=== PATIENT | male | born 2000 | race African-American/Black ===

== ENCOUNTER 2022-04-14 21:14 | Emergency (ER) | payer BC ==
[2022-04-14 22:08] VITALS: BP 137/81; PULSE 89; RESP 18; TEMP 98.3; BMI 40.0
[2022-04-14] MEDS ORDERED: ACETAMINOPHEN 500 MG TABLET (FP) PO ONE (23:40)
[2022-04-14] MEDS ORDERED: SODIUM CHLORIDE 0.9% 500 ML INFUS.BAG IV ONE (23:42)
[2022-04-15] MEDS ORDERED: ACETAMINOPHEN 325 MG TABLET (FP) ONE (00:31)
[2022-04-15 00:33] LABS: BASO % 1.1 % (0-2.0); EOS % 1.5 % (0-4.5); HEMATOCRIT 44.6 % (35.4-49); HEMOGLOBIN 14.8 GM/dL (11.7-16.9); LYMPH % 40.5 % (8-40); MCHC 33.1 g/dl (32.0-35.9); MEAN CELL VOLUME 81.6 fl (80-96); MEAN PLT VOLUME 8.1 fl (7.5-11.1); MONO % 10.2 % (3.8-10.2); NEUT % 46.7 % (42.8-82.8); PLATELET COUNT 280 10^3/uL (134-434); RBC 5.47 M/mm3 (4.00-5.60); RDW 14.2 % (11.9-15.9); WHITE BLOOD COUNT 6.1 K/mm3 (4.0-10.0)
[2022-04-15 00:36] LABS: VENOUS BASE EXCESS -0.3 mmol/L (-2-2); VENOUS O2 SATURATION 90.8 % (70-80); VENOUS PCO2 43.7 mmHg (38-52); VENOUS PH 7.377 (7.310-7.410)
[2022-04-15 00:54] LABS: CALCIUM 9.9 mg/dL (8.5-10.1)
[2022-04-15 00:55] LABS: BLOOD UREA NITROGEN 11.2 mg/dL (7-18); MAGNESIUM 2.1 mg/dL (1.8-2.4)
[2022-04-15 00:58] LABS: CREATININE 0.9 mg/dL (0.55-1.3); PHOSPHOROUS 4.3 mg/dL (2.5-4.9)
[2022-04-15 00:59] LABS: BILIRUBIN,TOTAL 0.6 mg/dL (0.2-1); TOT PROT 7.5 g/dl (6.4-8.2)
== END 2022-04-15 02:48 | disposition home or self-care (01) ==
LOC: JER 21:14
DX: R55 Syncope and collapse (principal)
CPT/HCPCS: 36415; 71046-TC-FY; 73130-TC-LT-FY; 80053; 82803; 83735; 84100; 84484; 85025; 93005; 93010; 99284-25